=== PATIENT | female | born 1945 | race Caucasian/White ===

== ENCOUNTER 2023-04-27 20:42 | Inpatient (IN) ==
[2023-04-27 21:00] LABS: POC Calcium, Ionized 1.11 (1.16-1.32); POC Creatinine 1.3 (0.6-1.2)
[2023-04-27 22:13] LABS: Basophils # (Auto) 0.02 K/mcL (0.00-0.30); Basophils % (Auto) 0.1 % (0.0-2.0); Eosinophils # (Auto) 0 K/mcL (0.00-0.70); Eosinophils % (Auto) 0 % (0.0-7.0); Hematocrit 27.9 % (34.1-44.9); Lymphocytes # (Auto) 1.09 K/mcL (1.50-4.80); Lymphocytes % (Auto) 6.9 % (15.5-49.0); Mean Cell Volume 95.2 fL (80.0-100.0); Mean Corpuscular HGB Conc 32.3 g/dL (31.0-36.0); Mean Platelet Volume 11.9 fL (8.8-12.5); Monocytes # (Auto) 0.66 K/mcL (0.10-0.90); Monocytes % (Auto) 4.2 % (1.0-12.0); Neutrophils % (Auto) 87.3 % (38.0-78.0); Platelet Count 148 K/mcL (140-440); RBC 2.93 M/mcL (3.59-5.38); Red Cell Distribution Width 17.2 % (11.5-14.5); WBC 15.8 K/mcL (4.5-11.0)
[2023-04-27] MEDS ORDERED: POTASSIUM CHLORIDE 20 MEQ TABLET PO PRN (22:22)
[2023-04-27] MEDS ORDERED: TAMSULOSIN 0.4 MG CAPSULE PO ONE ×2 (22:22→22:48)
[2023-04-27] MEDS ORDERED: SENNOSIDES 1 TABLET PO PRN (22:22)
[2023-04-27] MEDS ORDERED: POLYETHYLENE GLYCOL 3350 17 GM PACKET PO PRN (22:22)
[2023-04-27] MEDS ORDERED: MAGNESIUM SULFATE 2 GM/50 ML BAG IV PRN (22:22)
[2023-04-27] MEDS ORDERED: POTASSIUM CHLORIDE 40 MEQ in DEXTROSE 5% IN WATER 500 ML IV PRN (22:22)
[2023-04-27] MEDS: 0.9 % SODIUM CHLORIDE 1,000 ML IV SCH (22:35)
[2023-04-27] MEDS ORDERED: ACETAMINOPHEN 1,000 MG/100 ML BAG IV ONE (22:48)
[2023-04-27] MEDS: ACETAMINOPHEN 650 MG/65 ML BAG IV PRN (22:51)
[2023-04-27] MEDS ORDERED: LACTATED RINGERS 500 ML IV ONE (22:55)
[2023-04-27] MEDS: PIPERACILLIN SODIUM/TAZOBACTAM 3.375 GM in DEXTROSE 5% IN WATER 50 ML IV SCH (23:00)
[2023-04-28] MEDS: PIPERACILLIN SODIUM/TAZOBACTAM 3.375 GM in DEXTROSE 5% IN WATER 50 ML IV SCH (04:36)
[2023-04-28] MEDS ORDERED: ONDANSETRON 4 MG/2 ML VIAL ONE ×2 (05:06→13:04)
[2023-04-28] MEDS: ONDANSETRON 4 MG/2 ML VIAL IV PRN ×2 (05:07→15:06)
[2023-04-28] MEDS ORDERED: ACETAMINOPHEN 1,000 MG/100 ML BAG IV ONE ×2 (05:09→11:00)
[2023-04-28] MEDS: ACETAMINOPHEN 650 MG/65 ML BAG IV PRN (05:11)
[2023-04-28 06:06] LABS: Hematocrit 28.9 % (34.1-44.9); Hemoglobin 9.2 g/dL (11.2-15.7); Mean Cell Volume 96.7 fL (80.0-100.0); Mean Corpuscular HGB Conc 31.8 g/dL (31.0-36.0); Mean Platelet Volume 11.9 fL (8.8-12.5); Platelet Count 156 K/mcL (140-440); RBC 2.99 M/mcL (3.59-5.38); Red Cell Distribution Width 17.3 % (11.5-14.5)
[2023-04-28 06:35] LABS: ALT/SGPT 7 U/L (<40); AST/SGOT 21 U/L (<32); Albumin 2.1 gm/dL (3.2-5.2); Albumin/Globulin Ratio 0.8 (1.0-2.3); Alkaline Phosphatase 79 U/L (39-117); Bilirubin,Direct 0.3 mg/dL (<0.3); Bilirubin,Total 0.6 mg/dL (0.1-1.0); Blood Urea Nitrogen 23 mg/dL (8-23); Calcium 7.5 mg/dL (8.6-10.4); Carbon Dioxide 20 mmol/L (22-30); Chloride 102 mmol/L (96-108); Globulin 2.6 gm/dL (2.2-3.7); Glomerular Filtration Rate 40; Glucose 85 mg/dL (70-105); Lactate Dehydrogenase 215 U/L (135-225); Phosphorous 2.6 mg/dL (2.5-4.5); Triglycerides 139 mg/dL (<150); Uric Acid 3.9 mg/dL (2.5-8.0)
[2023-04-28 06:51] LABS: Anisocytosis 2+ (None Seen); Band Neutrophils % 10 % (0-10); Lymphocytes % 4 % (15-49); Monocytes % (Manual) 1 % (1-12); Ovalocytes 1+ (None Seen); Platelet Estimate NORMAL (Normal); Polychromasia OCC (None Seen); RBC Morphology ABNORMAL (Normal); Segmented Neutrophils % 85 % (38-78)
[2023-04-28] MEDS ORDERED: PROMETHAZINE 25 MG/ML VIAL IV PRN (08:29)
[2023-04-28] MEDS ORDERED: KETOROLAC 15 MG/ML VIAL IV ONE (08:29)
[2023-04-28] MEDS ORDERED: PIPERACILLIN SODIUM/TAZOBACTAM 3.375 GM in DEXTROSE 5% IN WATER 100 ML IV SCH (12:00)
[2023-04-28] MEDS ORDERED: PIPERACILLIN SODIUM/TAZOBACTAM 3.375 GM in DEXTROSE 5% IN WATER 50 ML IV SCH (12:00)
[2023-04-28] MEDS ORDERED: PROPOFOL 200 MG/20 ML VIAL IV ONE (13:04)
[2023-04-28] MEDS ORDERED: fentaNYL 100 MCG/2 ML VIAL IV ONE (13:05)
[2023-04-28] MEDS ORDERED: ROCURONIUM 10 MG/ML ML IV ONE (13:18)
[2023-04-28] MEDS ORDERED: SUGAMMADEX SODIUM 200 MG/2 ML VIAL IV ONE (13:47)
[2023-04-28] MEDS ORDERED: IPRATROPIUM/ALBUTEROL 3 ML AMPUL.NEB NEB PRN (14:08)
[2023-04-28] MEDS ORDERED: NALOXONE HCL 0.4 MG/ML VIAL IV PRN (14:08)
[2023-04-28] MEDS ORDERED: FLUMAZENIL 0.1 MG/ML ML IV PRN (14:08)
[2023-04-28] MEDS ORDERED: LACTATED RINGERS 1,000 ML IV SCH (14:15)
[2023-04-28] MEDS ORDERED: IOVERSOL 20 ML VIAL IV ONE (14:21)
[2023-04-28] MEDS: DOCUSATE SODIUM 100 MG CAPSULE PO SCH ×2 (14:55→19:43)
[2023-04-28] MEDS: fentaNYL 100 MCG/2 ML VIAL IV PRN ×2 (15:05→19:09)
[2023-04-28] MEDS: buPROPion 150 MG TAB.SR.12H PO SCH ×2 (15:06→20:25)
[2023-04-28] MEDS: LEVOTHYROXINE SODIUM 112 MCG TABLET PO SCH (15:07)
[2023-04-28] MEDS: PREGABALIN 25 MG CAPSULE PO SCH ×3 (15:07→20:25)
[2023-04-28] MEDS: METHOCARBAMOL 750 MG TABLET PO PRN (15:07)
[2023-04-28] MEDS: 0.9 % SODIUM CHLORIDE 1,000 ML IV SCH ×2 (15:12→21:29)
[2023-04-28] MEDS: PANTOPRAZOLE 40 MG VIAL IV SCH (18:49)
[2023-04-28] MEDS: PIPERACILLIN SODIUM/TAZOBACTAM 3.375 GM in DEXTROSE 5% IN WATER 100 ML IV SCH (20:24)
[2023-04-28] MEDS: ATORVASTATIN 10 MG TABLET PO SCH (20:25)
[2023-04-28] MEDS: MIRTAZAPINE 15 MG TABLET PO SCH (20:25)
[2023-04-28] MEDS: traZODone HCL 100 MG TABLET PO PRN (20:25)
[2023-04-29] MEDS: 0.9 % SODIUM CHLORIDE 1,000 ML IV SCH (01:26)
[2023-04-29] MEDS: ACETAMINOPHEN 650 MG/65 ML BAG IV PRN ×2 (02:28→19:31)
[2023-04-29] MEDS: PIPERACILLIN SODIUM/TAZOBACTAM 3.375 GM in DEXTROSE 5% IN WATER 100 ML IV SCH (04:00)
[2023-04-29 05:43] LABS: Basophils # (Auto) 0.01 K/mcL (0.00-0.30); Basophils % (Auto) 0.1 % (0.0-2.0); Eosinophils # (Auto) 0.08 K/mcL (0.00-0.70); Eosinophils % (Auto) 0.7 % (0.0-7.0); Hematocrit 26.3 % (34.1-44.9); Hemoglobin 8.6 g/dL (11.2-15.7); Lymphocytes # (Auto) 0.63 K/mcL (1.50-4.80); Lymphocytes % (Auto) 5.5 % (15.5-49.0); Mean Cell Volume 95.3 fL (80.0-100.0); Mean Corpuscular HGB Conc 32.7 g/dL (31.0-36.0); Mean Platelet Volume 11.5 fL (8.8-12.5); Monocytes % (Auto) 4.4 % (1.0-12.0); Neutrophils % (Auto) 88.1 % (38.0-78.0); Platelet Count 140 K/mcL (140-440); RBC 2.76 M/mcL (3.59-5.38); Red Cell Distribution Width 17.7 % (11.5-14.5); WBC 11.5 K/mcL (4.5-11.0)
[2023-04-29 06:18] LABS: ALT/SGPT 6 U/L (<40); AST/SGOT 16 U/L (<32); Albumin 1.9 gm/dL (3.2-5.2); Albumin/Globulin Ratio 0.8 (1.0-2.3); Alkaline Phosphatase 75 U/L (39-117); Bilirubin,Direct < 0.2 mg/dL (0-0.3); Bilirubin,Total 0.3 mg/dL (0.1-1.0); Blood Urea Nitrogen 20 mg/dL (8-23); Calcium 7.2 mg/dL (8.6-10.4); Carbon Dioxide 16 mmol/L (22-30); Chloride 108 mmol/L (96-108); Globulin 2.3 gm/dL (2.2-3.7); Glomerular Filtration Rate 44; Glucose 57 mg/dL (70-105); Lactate Dehydrogenase 165 U/L (135-225); Phosphorous 2.5 mg/dL (2.5-4.5); Triglycerides 156 mg/dL (<150); Uric Acid 3.2 mg/dL (2.5-8.0)
[2023-04-29] MEDS: LEVOTHYROXINE SODIUM 112 MCG TABLET PO SCH (07:00)
[2023-04-29] MEDS: fentaNYL 100 MCG/2 ML VIAL IV PRN ×2 (07:00→15:40)
[2023-04-29] MEDS: PANTOPRAZOLE 40 MG VIAL IV SCH ×2 (07:00→16:53)
[2023-04-29] MEDS: PREGABALIN 25 MG CAPSULE PO SCH ×3 (08:18→20:25)
[2023-04-29] MEDS: POTASSIUM CHLORIDE 20 MEQ TABLET PO PRN (08:19)
[2023-04-29] MEDS: buPROPion 150 MG TAB.SR.12H PO SCH ×2 (08:19→20:26)
[2023-04-29] MEDS: DOCUSATE SODIUM 100 MG CAPSULE PO SCH (08:19)
[2023-04-29] MEDS: SODIUM BICARBONATE 650 MG TABLET PO SCH ×3 (08:19→20:26)
[2023-04-29] MEDS: cefTRIAXone 1 GM VIAL IV SCH (11:56)
[2023-04-29] MEDS: MIRTAZAPINE 15 MG TABLET PO SCH (20:25)
[2023-04-29] MEDS: ATORVASTATIN 10 MG TABLET PO SCH (20:25)
[2023-04-29] MEDS: traZODone HCL 100 MG TABLET PO PRN (20:26)
[2023-04-30] MEDS: fentaNYL 100 MCG/2 ML VIAL IV PRN (05:23)
[2023-04-30 06:26] LABS: Basophils # (Auto) 0.01 K/mcL (0.00-0.30); Basophils % (Auto) 0.1 % (0.0-2.0); Eosinophils # (Auto) 0.12 K/mcL (0.00-0.70); Eosinophils % (Auto) 1.5 % (0.0-7.0); Hematocrit 29.9 % (34.1-44.9); Hemoglobin 9.7 g/dL (11.2-15.7); Lymphocytes # (Auto) 0.73 K/mcL (1.50-4.80); Lymphocytes % (Auto) 9.1 % (15.5-49.0); Mean Corpuscular HGB Conc 32.4 g/dL (31.0-36.0); Mean Platelet Volume 11.9 fL (8.8-12.5); Monocytes # (Auto) 0.58 K/mcL (0.10-0.90); Monocytes % (Auto) 7.2 % (1.0-12.0); Neutrophils % (Auto) 80.6 % (38.0-78.0); Platelet Count 181 K/mcL (140-440); RBC 3.18 M/mcL (3.59-5.38); Red Cell Distribution Width 17.9 % (11.5-14.5)
[2023-04-30 06:42] LABS: ALT/SGPT 9 U/L (<40); AST/SGOT 24 U/L (<32); Albumin 2.1 gm/dL (3.2-5.2); Albumin/Globulin Ratio 0.8 (1.0-2.3); Alkaline Phosphatase 90 U/L (39-117); Bilirubin,Direct < 0.2 mg/dL (0-0.3); Bilirubin,Total 0.3 mg/dL (0.1-1.0); Blood Urea Nitrogen 16 mg/dL (8-23); Carbon Dioxide 24 mmol/L (22-30); Chloride 108 mmol/L (96-108); Globulin 2.8 gm/dL (2.2-3.7); Glomerular Filtration Rate 40; Glucose 95 mg/dL (70-105); Lactate Dehydrogenase 190 U/L (135-225); Phosphorous 1.3 mg/dL (2.5-4.5); Triglycerides 224 mg/dL (<150); Uric Acid 3.1 mg/dL (2.5-8.0)
[2023-04-30] MEDS: PANTOPRAZOLE 40 MG VIAL IV SCH ×2 (08:17→17:03)
[2023-04-30] MEDS: POTASSIUM CHLORIDE 20 MEQ TABLET PO PRN (08:17)
[2023-04-30] MEDS: PREGABALIN 25 MG CAPSULE PO SCH ×3 (08:17→20:33)
[2023-04-30] MEDS: cefTRIAXone 1 GM VIAL IV SCH (08:17)
[2023-04-30] MEDS: LEVOTHYROXINE SODIUM 112 MCG TABLET PO SCH (08:18)
[2023-04-30] MEDS: buPROPion 150 MG TAB.SR.12H PO SCH ×2 (08:18→20:33)
[2023-04-30] MEDS: ACETAMINOPHEN 650 MG/65 ML BAG IV PRN (12:56)
[2023-04-30] MEDS: METHOCARBAMOL 750 MG TABLET PO PRN (18:52)
[2023-04-30] MEDS: ATORVASTATIN 10 MG TABLET PO SCH (20:33)
[2023-04-30] MEDS: MIRTAZAPINE 15 MG TABLET PO SCH (20:33)
[2023-04-30] MEDS: traZODone HCL 100 MG TABLET PO PRN (20:34)
[2023-05-01] MEDS: PANTOPRAZOLE 40 MG VIAL IV SCH ×2 (07:51→16:47)
[2023-05-01] MEDS: cefTRIAXone 1 GM VIAL IV SCH (07:51)
[2023-05-01] MEDS: buPROPion 150 MG TAB.SR.12H PO SCH ×2 (09:15→20:08)
[2023-05-01] MEDS: LEVOTHYROXINE SODIUM 112 MCG TABLET PO SCH (09:15)
[2023-05-01] MEDS: PREGABALIN 25 MG CAPSULE PO SCH ×3 (09:15→20:08)
[2023-05-01] MEDS: METOPROLOL SUCCINATE 50 MG TAB.XL.24H PO SCH (09:26)
[2023-05-01] MEDS: CLOPIDOGREL 75 MG TABLET PO SCH (09:26)
[2023-05-01] MEDS ORDERED: NICOTINE 14 MG PATCH TOPICAL ONE (11:03)
[2023-05-01] MEDS: ACETAMINOPHEN 650 MG/65 ML BAG IV PRN (15:17)
[2023-05-01] MEDS: traZODone HCL 100 MG TABLET PO PRN (20:08)
[2023-05-01] MEDS: ATORVASTATIN 10 MG TABLET PO SCH (20:08)
[2023-05-01] MEDS: MIRTAZAPINE 15 MG TABLET PO SCH (20:08)
[2023-05-02] MEDS: METHOCARBAMOL 750 MG TABLET PO PRN (03:02)
[2023-05-02 07:18] LABS: Basophils # (Auto) 0.01 K/mcL (0.00-0.30); Basophils % (Auto) 0.1 % (0.0-2.0); Eosinophils # (Auto) 0.08 K/mcL (0.00-0.70); Eosinophils % (Auto) 0.9 % (0.0-7.0); Hematocrit 24.4 % (34.1-44.9); Hemoglobin 7.8 g/dL (11.2-15.7); Lymphocytes # (Auto) 0.76 K/mcL (1.50-4.80); Lymphocytes % (Auto) 8.6 % (15.5-49.0); Mean Cell Volume 93.8 fL (80.0-100.0); Mean Platelet Volume 12.2 fL (8.8-12.5); Monocytes # (Auto) 0.77 K/mcL (0.10-0.90); Monocytes % (Auto) 8.7 % (1.0-12.0); Neutrophils % (Auto) 79.8 % (38.0-78.0); Platelet Count 164 K/mcL (140-440); Red Cell Distribution Width 18.6 % (11.5-14.5); WBC 8.9 K/mcL (4.5-11.0)
[2023-05-02 08:30] LABS: ALT/SGPT 31 U/L (<40); AST/SGOT 85 U/L (<32); Albumin/Globulin Ratio 0.7 (1.0-2.3); Alkaline Phosphatase 114 U/L (39-117); Bilirubin,Direct < 0.2 mg/dL (0-0.3); Bilirubin,Total 0.2 mg/dL (0.1-1.0); Blood Urea Nitrogen 8 mg/dL (8-23); Calcium 7.7 mg/dL (8.6-10.4); Carbon Dioxide 22 mmol/L (22-30); Chloride 102 mmol/L (96-108); Globulin 2.8 gm/dL (2.2-3.7); Glomerular Filtration Rate 54; Glucose 77 mg/dL (70-105); Lactate Dehydrogenase 368 U/L (135-225); Phosphorous 1.5 mg/dL (2.5-4.5); Triglycerides 153 mg/dL (<150); Uric Acid 2.9 mg/dL (2.5-8.0)
[2023-05-02] MEDS: cefTRIAXone 1 GM VIAL IV SCH (09:17)
[2023-05-02] MEDS: buPROPion 150 MG TAB.SR.12H PO SCH ×2 (09:17→20:11)
[2023-05-02] MEDS: LEVOTHYROXINE SODIUM 112 MCG TABLET PO SCH (09:17)
[2023-05-02] MEDS: PANTOPRAZOLE 40 MG VIAL IV SCH ×2 (09:17→17:20)
[2023-05-02] MEDS: METOPROLOL SUCCINATE 50 MG TAB.XL.24H PO SCH (09:17)
[2023-05-02] MEDS: PREGABALIN 25 MG CAPSULE PO SCH ×3 (09:17→20:11)
[2023-05-02] MEDS: CLOPIDOGREL 75 MG TABLET PO SCH (09:17)
[2023-05-02] MEDS: ACETAMINOPHEN 325 MG TABLET PO PRN ×2 (10:10→16:09)
[2023-05-02] MEDS: NICOTINE 14 MG PATCH TOPICAL SCH (10:10)
[2023-05-02] MEDS ORDERED: 0.9 % SODIUM CHLORIDE 250 ML IV SCH (11:15)
[2023-05-02 11:21] LABS: Iron 17 ug/dL (37-145); TIBC Calculation 134 ug/dl (228-428); Transferrin % Saturation 13 % (15-50)
[2023-05-02 11:28] LABS: Ferritin 623.6 ng/mL (30.0-400.0)
[2023-05-02] MEDS: traZODone HCL 100 MG TABLET PO PRN (20:11)
[2023-05-02] MEDS: MIRTAZAPINE 15 MG TABLET PO SCH (20:11)
[2023-05-02] MEDS: ATORVASTATIN 10 MG TABLET PO SCH (20:11)
[2023-05-03] MEDS: METHOCARBAMOL 750 MG TABLET PO PRN (00:19)
[2023-05-03] MEDS: ACETAMINOPHEN 325 MG TABLET PO PRN (05:57)
[2023-05-03 06:28] LABS: Hematocrit 28.2 % (34.1-44.9); Hemoglobin 9.2 g/dL (11.2-15.7)
[2023-05-03] MEDS: buPROPion 150 MG TAB.SR.12H PO SCH ×2 (08:40→20:02)
[2023-05-03] MEDS: IRON SUCROSE COMPLEX 100 MG/5 ML VIAL IV SCH (08:40)
[2023-05-03] MEDS: LEVOTHYROXINE SODIUM 112 MCG TABLET PO SCH (08:40)
[2023-05-03] MEDS: PREGABALIN 25 MG CAPSULE PO SCH ×3 (08:40→20:02)
[2023-05-03] MEDS: CLOPIDOGREL 75 MG TABLET PO SCH (08:40)
[2023-05-03] MEDS: cefTRIAXone 1 GM VIAL IV SCH (08:40)
[2023-05-03] MEDS: PANTOPRAZOLE 40 MG VIAL IV SCH (08:40)
[2023-05-03] MEDS: METOPROLOL SUCCINATE 50 MG TAB.XL.24H PO SCH (08:40)
[2023-05-03] MEDS: NICOTINE 14 MG PATCH TOPICAL SCH (09:44)
[2023-05-03] MEDS: ACETAMINOPHEN 650 MG/65 ML BAG IV PRN (14:12)
[2023-05-03] MEDS: LORazepam 0.5 MG TABLET PO PRN ×2 (15:54→16:26)
[2023-05-03] MEDS: ATORVASTATIN 10 MG TABLET PO SCH (20:02)
[2023-05-03] MEDS: MIRTAZAPINE 15 MG TABLET PO SCH (20:02)
[2023-05-04] MEDS: PANTOPRAZOLE 40 MG TABLET PO SCH (07:21)
[2023-05-04] MEDS: LEVOTHYROXINE SODIUM 112 MCG TABLET PO SCH (07:21)
[2023-05-04] MEDS: CLOPIDOGREL 75 MG TABLET PO SCH (08:47)
[2023-05-04] MEDS: cefTRIAXone 1 GM VIAL IV SCH (08:47)
[2023-05-04] MEDS: buPROPion 150 MG TAB.SR.12H PO SCH ×2 (08:47→20:03)
[2023-05-04] MEDS: IRON SUCROSE COMPLEX 100 MG/5 ML VIAL IV SCH (08:47)
[2023-05-04] MEDS: METOPROLOL SUCCINATE 50 MG TAB.XL.24H PO SCH (08:47)
[2023-05-04] MEDS: PREGABALIN 25 MG CAPSULE PO SCH ×3 (08:47→20:03)
[2023-05-04] MEDS: ACETAMINOPHEN 650 MG/65 ML BAG IV PRN (09:21)
[2023-05-04] MEDS: NICOTINE 14 MG PATCH TOPICAL SCH (09:22)
[2023-05-04] MEDS: LORazepam 0.5 MG TABLET PO PRN (19:17)
[2023-05-04] MEDS: ACETAMINOPHEN 325 MG TABLET PO PRN (20:03)
[2023-05-04] MEDS: ATORVASTATIN 10 MG TABLET PO SCH (20:03)
[2023-05-04] MEDS: MIRTAZAPINE 15 MG TABLET PO SCH (20:03)
[2023-05-05] MEDS: ACETAMINOPHEN 325 MG TABLET PO PRN (07:03)
[2023-05-05] MEDS: LEVOTHYROXINE SODIUM 112 MCG TABLET PO SCH (07:03)
[2023-05-05] MEDS: PANTOPRAZOLE 40 MG TABLET PO SCH (07:03)
[2023-05-05] MEDS: LORazepam 0.5 MG TABLET PO PRN ×2 (08:08→14:43)
[2023-05-05 08:32] LABS: Basophils # (Auto) 0.02 K/mcL (0.00-0.30); Basophils % (Auto) 0.2 % (0.0-2.0); Eosinophils # (Auto) 0.25 K/mcL (0.00-0.70); Eosinophils % (Auto) 2.2 % (0.0-7.0); Hematocrit 32.8 % (34.1-44.9); Hemoglobin 10.5 g/dL (11.2-15.7); Lymphocytes # (Auto) 1.19 K/mcL (1.50-4.80); Lymphocytes % (Auto) 10.7 % (15.5-49.0); Mean Cell Volume 92.7 fL (80.0-100.0); Mean Platelet Volume 10.9 fL (8.8-12.5); Monocytes # (Auto) 0.83 K/mcL (0.10-0.90); Monocytes % (Auto) 7.4 % (1.0-12.0); Neutrophils % (Auto) 78.1 % (38.0-78.0); Platelet Count 297 K/mcL (140-440); RBC 3.54 M/mcL (3.59-5.38); Red Cell Distribution Width 18.6 % (11.5-14.5); WBC 11.2 K/mcL (4.5-11.0)
[2023-05-05 08:38] LABS: ALT/SGPT 26 U/L (<40); AST/SGOT 35 U/L (<32); Albumin 2.4 gm/dL (3.2-5.2); Albumin/Globulin Ratio 0.8 (1.0-2.3); Alkaline Phosphatase 88 U/L (39-117); Bilirubin,Total 0.3 mg/dL (0.1-1.0); Blood Urea Nitrogen 6 mg/dL (8-23); Calcium 7.7 mg/dL (8.6-10.4); Carbon Dioxide 24 mmol/L (22-30); Chloride 100 mmol/L (96-108); Globulin 2.9 gm/dL (2.2-3.7); Glomerular Filtration Rate 62; Glucose 112 mg/dL (70-105)
[2023-05-05] MEDS ORDERED: POTASSIUM CHLORIDE 20 MEQ/10 ML VIAL IV ONE (08:45)
[2023-05-05] MEDS: IRON SUCROSE COMPLEX 100 MG/5 ML VIAL IV SCH (08:47)
[2023-05-05] MEDS: cefTRIAXone 1 GM VIAL IV SCH (08:47)
[2023-05-05] MEDS: METOPROLOL SUCCINATE 50 MG TAB.XL.24H PO SCH (08:48)
[2023-05-05] MEDS: PREGABALIN 25 MG CAPSULE PO SCH ×3 (08:48→22:03)
[2023-05-05] MEDS: CLOPIDOGREL 75 MG TABLET PO SCH (08:48)
[2023-05-05] MEDS: buPROPion 150 MG TAB.SR.12H PO SCH ×2 (08:48→22:03)
[2023-05-05] MEDS: NICOTINE 14 MG PATCH TOPICAL SCH (12:12)
[2023-05-05 15:38] LABS: POC Calcium, Ionized 0.98 (1.16-1.32); POC Potassium 3.7 (3.3-5.1)
[2023-05-05] MEDS ORDERED: LORazepam 0.5 MG TABLET PO ONE (16:01)
[2023-05-05] MEDS ORDERED: LORazepam 0.5 MG TABLET PO SCH (16:15)
[2023-05-05] MEDS: POTASSIUM CHLORIDE 20 MEQ TABLET PO SCH (16:54)
[2023-05-05] MEDS: IPRATROPIUM/ALBUTEROL 3 ML AMPUL.NEB NEB PRN ×2 (17:10→19:30)
[2023-05-05] MEDS: FUROSEMIDE 20 MG TABLET PO SCH (17:37)
[2023-05-05] MEDS ORDERED: FUROSEMIDE 40 MG/4 ML VIAL IV ONE ×2 (19:32→19:41)
[2023-05-05 20:22] LABS: ABG Methemoglobin 0 % (0.4-1.5); Total Hemoglobin 12.6 gm/Dl (12.0-15.0); VBG Base Excess -6 (-2-3); VBG HCO3 21.9 mmol/L (24.0-28.0); VBG Oxygen Saturation 48.2 % (40.0-70.0); VBG PCO2 55.6 mmHg (41.0-51.0); VBG PH 7.21 U (7.32-7.42); VBG PO2 31.8 mmHg (25.0-40.0); VBG Total CO2 23.6 mmol/L (25.0-29.0)
[2023-05-05] MEDS: MIRTAZAPINE 15 MG TABLET PO SCH (22:03)
[2023-05-05] MEDS: ATORVASTATIN 10 MG TABLET PO SCH (22:03)
[2023-05-05] MEDS ORDERED: hydrALAZINE 20 MG/ML VIAL IV PRN (23:00)
[2023-05-06] MEDS: IPRATROPIUM/ALBUTEROL 3 ML AMPUL.NEB NEB PRN ×3 (00:05→09:06)
[2023-05-06 06:09] LABS: Basophils # (Auto) 0.03 K/mcL (0.00-0.30); Basophils % (Auto) 0.2 % (0.0-2.0); Eosinophils # (Auto) 0 K/mcL (0.00-0.70); Eosinophils % (Auto) 0 % (0.0-7.0); Lymphocytes % (Auto) 4.7 % (15.5-49.0); Mean Cell Volume 94.1 fL (80.0-100.0); Mean Corpuscular HGB Conc 31.4 g/dL (31.0-36.0); Mean Platelet Volume 11.3 fL (8.8-12.5); Monocytes # (Auto) 0.57 K/mcL (0.10-0.90); Monocytes % (Auto) 3.3 % (1.0-12.0); Neutrophils % (Auto) 89.9 % (38.0-78.0); Platelet Count 350 K/mcL (140-440); RBC 3.72 M/mcL (3.59-5.38); Red Cell Distribution Width 18.8 % (11.5-14.5)
[2023-05-06 06:35] LABS: ALT/SGPT 200 U/L (<40); AST/SGOT 596 U/L (<32); Albumin 2.9 gm/dL (3.2-5.2); Albumin/Globulin Ratio 0.9 (1.0-2.3); Alkaline Phosphatase 118 U/L (39-117); Bilirubin,Total 0.5 mg/dL (0.1-1.0); Blood Urea Nitrogen 10 mg/dL (8-23); Calcium 8.8 mg/dL (8.6-10.4); Carbon Dioxide 19 mmol/L (22-30); Chloride 96 mmol/L (96-108); Globulin 3.3 gm/dL (2.2-3.7); Glomerular Filtration Rate 44; Glucose 96 mg/dL (70-105)
[2023-05-06] MEDS: LORazepam 0.5 MG TABLET PO PRN ×3 (08:38→21:33)
[2023-05-06] MEDS: LEVOTHYROXINE SODIUM 112 MCG TABLET PO SCH (08:40)
[2023-05-06] MEDS: FUROSEMIDE 20 MG TABLET PO SCH (08:41)
[2023-05-06] MEDS: PANTOPRAZOLE 40 MG TABLET PO SCH (08:42)
[2023-05-06] MEDS: POTASSIUM CHLORIDE 20 MEQ TABLET PO SCH (09:42)
[2023-05-06] MEDS: cefTRIAXone 1 GM VIAL IV SCH (09:52)
[2023-05-06] MEDS ORDERED: AZITHROMYCIN 500 MG in DEXTROSE 5% IN WATER 250 ML IV SCH (10:00)
[2023-05-06] MEDS ORDERED: cefTRIAXone 1 GM VIAL IV SCH (10:00)
[2023-05-06] MEDS ORDERED: FUROSEMIDE 40 MG/4 ML VIAL IV SCH (10:00)
[2023-05-06] MEDS: buPROPion 150 MG TAB.SR.12H PO SCH ×2 (10:52→21:35)
[2023-05-06] MEDS: METOPROLOL SUCCINATE 50 MG TAB.XL.24H PO SCH (10:55)
[2023-05-06] MEDS: CLOPIDOGREL 75 MG TABLET PO SCH (10:56)
[2023-05-06] MEDS: PREGABALIN 25 MG CAPSULE PO SCH ×3 (11:00→21:34)
[2023-05-06] MEDS: NICOTINE 14 MG PATCH TOPICAL SCH (11:10)
[2023-05-06] MEDS ORDERED: ONDANSETRON 4 MG ODT TABLET SL PRN (13:14)
[2023-05-06] MEDS ORDERED: ALBUTEROL SULFATE 2.5 MG/3 ML NEBULIZER NEB PRN (13:14)
[2023-05-06] MEDS ORDERED: morphine 4 MG/ML VIAL NEB PRN (13:14)
[2023-05-06] MEDS ORDERED: LACTOPEROXI/GLUC OXID/POT THIO 1 EACH GEL..EA. TOPICAL PRN (13:14)
[2023-05-06] MEDS ORDERED: morphine 4 MG/ML VIAL IV PRN (13:14)
[2023-05-06] MEDS ORDERED: HYDROmorphone 1 MG/ML SYRINGE IV PRN (13:14)
[2023-05-06] MEDS ORDERED: LORazepam 1 MG TABLET SL PRN (13:44)
[2023-05-06] MEDS: fentaNYL 100 MCG/2 ML VIAL IV PRN (14:52)
[2023-05-06] MEDS: SCOPOLAMINE 1 PATCH PATCH TOPICAL SCH (14:54)
[2023-05-06] MEDS: 0.9 % SODIUM CHLORIDE 10 ML SYRINGE IV SCH ×2 (15:39→21:36)
[2023-05-06] MEDS ORDERED: LORazepam 2 MG/ML VIAL IV PRN (20:08)
[2023-05-06] MEDS: MIRTAZAPINE 15 MG TABLET PO SCH (21:36)
[2023-05-07] MEDS ORDERED: LORazepam 2 MG/ML VIAL ONE (01:38)
[2023-05-07] MEDS: fentaNYL 100 MCG/2 ML VIAL IV PRN ×2 (03:26→10:03)
[2023-05-07] MEDS: 0.9 % SODIUM CHLORIDE 10 ML SYRINGE IV SCH ×3 (05:30→22:30)
[2023-05-07] MEDS: LORazepam 2 MG/ML VIAL IV PRN ×2 (10:04→13:27)
[2023-05-07] MEDS: buPROPion 150 MG TAB.SR.12H PO SCH ×2 (10:05→20:03)
[2023-05-07] MEDS: PREGABALIN 25 MG CAPSULE PO SCH ×3 (10:05→20:03)
[2023-05-07] MEDS: NICOTINE 14 MG PATCH TOPICAL SCH (11:42)
[2023-05-07] MEDS: HYDROmorphone 0.5 MG/0.5 ML SYRINGE IV PRN (13:45)
[2023-05-07] MEDS: MIRTAZAPINE 15 MG TABLET PO SCH (20:03)
[2023-05-08] MEDS: LORazepam 2 MG/ML VIAL IV PRN ×4 (00:17→23:06)
[2023-05-08] MEDS: 0.9 % SODIUM CHLORIDE 10 ML SYRINGE IV SCH ×3 (04:32→20:11)
[2023-05-08] MEDS: HYDROmorphone 0.5 MG/0.5 ML SYRINGE IV PRN ×3 (04:32→16:19)
[2023-05-08] MEDS: PREGABALIN 25 MG CAPSULE PO SCH ×3 (08:37→20:10)
[2023-05-08] MEDS: buPROPion 150 MG TAB.SR.12H PO SCH ×2 (08:38→20:10)
[2023-05-08] MEDS: NICOTINE 14 MG PATCH TOPICAL SCH (10:13)
[2023-05-08 17:00] LABS: Calculus Weight 0.024 g; Specimen Source LEFT KIDNEY STONE
[2023-05-08] MEDS: MIRTAZAPINE 15 MG TABLET PO SCH (20:10)
[2023-05-09] MEDS: LORazepam 2 MG/ML VIAL IV PRN ×5 (04:26→16:36)
[2023-05-09] MEDS: 0.9 % SODIUM CHLORIDE 10 ML SYRINGE IV SCH ×3 (04:26→20:24)
[2023-05-09] MEDS: HYDROmorphone 0.5 MG/0.5 ML SYRINGE IV PRN ×6 (07:06→18:04)
[2023-05-09] MEDS: buPROPion 150 MG TAB.SR.12H PO SCH ×2 (07:08→20:24)
[2023-05-09] MEDS: PREGABALIN 25 MG CAPSULE PO SCH ×3 (07:08→20:24)
[2023-05-09] MEDS: NICOTINE 14 MG PATCH TOPICAL SCH (10:30)
[2023-05-09] MEDS: SCOPOLAMINE 1 PATCH PATCH TOPICAL SCH (14:06)
[2023-05-09] MEDS: MIRTAZAPINE 15 MG TABLET PO SCH (20:24)
== END 2023-05-09 21:10 | disposition expired | DRG 853 ==
LOC: ED 20:42 → ICU 22:15 → MEDSUR 05-03 13:49
PROVIDERS: ADMIT Internal Medicine; ATTEND Internal Medicine